=== PATIENT | male | born 1960 | race Hispanic/Latino ===

== ENCOUNTER 2022-11-11 18:38 | Emergency (ER) | payer SELFPAY ==
[~2022-11-11] VITALS: Ht 162.6 cm; Wt 72.6 kg
[2022-11-11] VITALS (25 sets, daily range): BP systolic 73–151; BP diastolic 43–91
[2022-11-11 19:32] LABS: BASO% 0.3 % (0-3); EOS% 8.8 % (0-8); HEMATOCRIT 40.4 % (39.0-50.0); HEMOGLOBIN 13.4 g/dl (14.0-18.0); IMMATURE GRANULOCYTES 0.6 % (0.0-5.0); LYMPH% 38.4 % (15-41); MEAN CELL VOLUME 95.5 fL CALC (80.0-100.0); MEAN CORPUSCULAR HGB 31.7 pG CALC (26.0-32.0); MEAN CORPUSCULAR HGB CONC 33.2 g/dL CAL (32.0-36.0); MONO% 12.3 % (2-13); NEUT# 2.5 thou/uL (1.82-7.42); NEUT% 39.6 % (42-76); RED BLOOD COUNT 4.23 mill/uL (4.70-6.10); RED CELL DISTRI WIDTH 12.9 % (11.5-15.5)
[2022-11-11 19:40] LABS: ALBUMIN 4.3 g/dL (3.2-5.0); ALKALINE PHOSPHATASE 109 u/l (38-126); ANION GAP 20 (6-22 (CALC)); BUN 4 mg/dL (8-23); BUN/CREATININE RATIO 6 (12-20 (CALC)); CARBON DIOXIDE 22 mmol/l (22-30); CHLORIDE 96 mmol/l (95-108); CREATININE 0.6 mg/dL (0.7-1.3); GFR FOR AFR.AMER. > 60 ML/MIN (>=60 (CALC)); GFR OTHER RACES > 60 ML/MIN (>=60 (CALC)); POTASSIUM 3.3 mmol/l (3.5-5.1); SGOT/AST 224 u/l (19-48); SODIUM 135 mmol/l (137-146); TOTAL PROTEIN 8.6 g/dL (6.3-8.2)
[2022-11-11 19:49] LABS: ETHYL ALCOHOL 409 mg/dl (0-30)
[2022-11-12] VITALS (29 sets, daily range): BP systolic 70–110; BP diastolic 44–66
== END 2022-11-12 10:30 | disposition home or self-care (01) | DRG 897 ==
LOC: ED 18:38
PROVIDERS: Emergency Medicine
DX: F10.129 Alcohol abuse with intoxication, unspecified (principal); Y90.8 Blood alcohol level of 240 mg/100 ml or more; S61.401A Unspecified open wound of right hand, initial encounter; L08.9 Local infection of the skin and subcutaneous tissue, unspecified; X58.XXXA Exposure to other specified factors, initial encounter; Z20.822 Contact with and (suspected) exposure to COVID-19

== ENCOUNTER 2023-06-03 11:36 | Inpatient (IN) | payer OTHER ==
[~2023-06-03] VITALS: Ht 162.6 cm; Wt 69.0 kg
[2023-06-03] VITALS (20 sets, daily range): BP systolic 107–207; BP diastolic 61–124
[2023-06-03 14:11] LABS: BASO% 0.7 % (0-3); EOS% 14.2 % (0-8); HEMATOCRIT 40.4 % (39.0-50.0); HEMOGLOBIN 13.4 g/dl (14.0-18.0); IMMATURE GRANULOCYTES 0.1 % (0.0-5.0); LYMPH% 21.8 % (15-41); MEAN CELL VOLUME 98.1 fL CALC (80.0-100.0); MEAN CORPUSCULAR HGB 32.5 pG CALC (26.0-32.0); MEAN CORPUSCULAR HGB CONC 33.2 g/dL CAL (32.0-36.0); MONO% 10.3 % (2-13); NEUT# 3.94 thou/uL (1.82-7.42); NEUT% 52.9 % (42-76); RED BLOOD COUNT 4.12 mill/uL (4.70-6.10); RED CELL DISTRI WIDTH 11.8 % (11.5-15.5)
[2023-06-03 14:49] LABS: ALBUMIN 4.1 g/dL (3.2-5.0); ALKALINE PHOSPHATASE 82 u/l (38-126); BILIRUBIN, TOTAL 0.7 mg/dL (0.2-1.3); BUN 10 mg/dL (8-23); BUN/CREATININE RATIO 17 (12-20 (CALC)); CHLORIDE 105 mmol/l (95-108); CREATININE 0.6 mg/dL (0.7-1.3); GFR FOR AFR.AMER. > 60 ML/MIN (>=60 (CALC)); GFR OTHER RACES > 60 ML/MIN (>=60 (CALC)); SGOT/AST 74 u/l (19-48); SODIUM 139 mmol/l (137-146); TOTAL PROTEIN 7.8 g/dL (6.3-8.2)
[2023-06-03 14:51] LABS: ANION GAP 10 (6-22 (CALC)); CARBON DIOXIDE 28 mmol/l (22-30)
[2023-06-03] MEDS ORDERED: ISONIAZID 300 MG TAB PO SCH (17:28)
[2023-06-03] MEDS ORDERED: rifAMPin 300 MG CAP PO ONE (17:30)
[2023-06-03] MEDS ORDERED: PYRAZINAMIDE 500 MG TAB PO SCH ×2 (17:30→18:30)
[2023-06-03] MEDS ORDERED: ETHAMBUTOL HCL 400 MG TAB PO SCH ×2 (17:30→18:35)
[2023-06-03] MEDS ORDERED: PYRIDOXINE HCL 25 MG PO SCH (17:56)
[2023-06-03] MEDS ORDERED: MAGNESIUM HYDROXIDE 30 ML UDC PO PRN (18:20)
[2023-06-03] MEDS ORDERED: rifAMPin 300 MG CAP PO SCH (18:29)
[2023-06-03] MEDS ORDERED: ENOXAPARIN SODIUM 40 MG/0.4 ML SYR SC SCH (21:00)
[2023-06-04 04:40] VITALS: BP 92/57
[2023-06-04 04:41] VITALS: BP 93/54
[2023-06-04 05:21] LABS: BASO% 0.6 % (0-3); EOS% 15.5 % (0-8); HEMATOCRIT 39.7 % (39.0-50.0); IMMATURE GRANULOCYTES 0.1 % (0.0-5.0); LYMPH% 23.7 % (15-41); MEAN CELL VOLUME 100.8 fL CALC (80.0-100.0); MEAN CORPUSCULAR HGB CONC 32.7 g/dL CAL (32.0-36.0); MONO% 15.3 % (2-13); NEUT# 3.47 thou/uL (1.82-7.42); NEUT% 44.8 % (42-76); RED BLOOD COUNT 3.94 mill/uL (4.70-6.10)
[2023-06-04 05:36] LABS: ALBUMIN 3.5 g/dL (3.2-5.0); ALKALINE PHOSPHATASE 56 u/l (38-126); ANION GAP 8 (6-22 (CALC)); BILIRUBIN, TOTAL 0.8 mg/dL (0.2-1.3); BUN 12 mg/dL (8-23); BUN/CREATININE RATIO 22 (12-20 (CALC)); CARBON DIOXIDE 30 mmol/l (22-30); CHLORIDE 106 mmol/l (95-108); CREATININE 0.6 mg/dL (0.7-1.3); GFR FOR AFR.AMER. > 60 ML/MIN (>=60 (CALC)); GFR OTHER RACES > 60 ML/MIN (>=60 (CALC)); MAGNESIUM 1.9 mg/dL (1.6-2.3); POTASSIUM 3.9 mmol/l (3.5-5.1); SGOT/AST 60 u/l (19-48); SODIUM 140 mmol/l (137-146)
[2023-06-04 06:53] VITALS: BP 102/67
[2023-06-04 16:09] VITALS: BP 93/51
[2023-06-04 19:53] VITALS: BP 89/54
[2023-06-04 22:13] VITALS: BP 94/55
[2023-06-05 07:03] LABS: EOS% 18.4 % (0-8); HEMATOCRIT 38.1 % (39.0-50.0); HEMOGLOBIN 12.6 g/dl (14.0-18.0); IMMATURE GRANULOCYTES 0.1 % (0.0-5.0); LYMPH% 25.9 % (15-41); MEAN CORPUSCULAR HGB 32.7 pG CALC (26.0-32.0); MEAN CORPUSCULAR HGB CONC 33.1 g/dL CAL (32.0-36.0); MONO% 14.3 % (2-13); NEUT# 2.9 thou/uL (1.82-7.42); NEUT% 40.3 % (42-76); RED BLOOD COUNT 3.85 mill/uL (4.70-6.10)
[2023-06-05 07:12] LABS: ALBUMIN 3.5 g/dL (3.2-5.0); ALKALINE PHOSPHATASE 80 u/l (38-126); ANION GAP 10 (6-22 (CALC)); BILIRUBIN, TOTAL 0.6 mg/dL (0.2-1.3); BUN 21 mg/dL (8-23); BUN/CREATININE RATIO 27 (12-20 (CALC)); CARBON DIOXIDE 27 mmol/l (22-30); CHLORIDE 106 mmol/l (95-108); CREATININE 0.8 mg/dL (0.7-1.3); GFR FOR AFR.AMER. > 60 ML/MIN (>=60 (CALC)); GFR OTHER RACES > 60 ML/MIN (>=60 (CALC)); MAGNESIUM 1.7 mg/dL (1.6-2.3); POTASSIUM 4.3 mmol/l (3.5-5.1); SGOT/AST 46 u/l (19-48); SODIUM 139 mmol/l (137-146); TOTAL PROTEIN 6.9 g/dL (6.3-8.2)
[2023-06-05 08:36] VITALS: BP 125/58
[2023-06-05 17:22] VITALS: BP 116/67
[2023-06-05 20:44] VITALS: BP 105/53
[2023-06-06 05:42] LABS: BASO% 0.8 % (0-3); EOS% 19.9 % (0-8); HEMATOCRIT 39.6 % (39.0-50.0); HEMOGLOBIN 13.1 g/dl (14.0-18.0); IMMATURE GRANULOCYTES 0.2 % (0.0-5.0); MEAN CELL VOLUME 98.3 fL CALC (80.0-100.0); MEAN CORPUSCULAR HGB 32.5 pG CALC (26.0-32.0); MEAN CORPUSCULAR HGB CONC 33.1 g/dL CAL (32.0-36.0); MONO% 10.4 % (2-13); NEUT# 2.37 thou/uL (1.82-7.42); NEUT% 36.7 % (42-76); RED BLOOD COUNT 4.03 mill/uL (4.70-6.10); RED CELL DISTRI WIDTH 11.7 % (11.5-15.5)
[2023-06-06 05:58] LABS: ANION GAP 10 (6-22 (CALC)); BUN 16 mg/dL (8-23); BUN/CREATININE RATIO 25 (12-20 (CALC)); CARBON DIOXIDE 28 mmol/l (22-30); CHLORIDE 108 mmol/l (95-108); CREATININE 0.6 mg/dL (0.7-1.3); GFR FOR AFR.AMER. > 60 ML/MIN (>=60 (CALC)); GFR OTHER RACES > 60 ML/MIN (>=60 (CALC)); POTASSIUM 4.5 mmol/l (3.5-5.1); SODIUM 141 mmol/l (137-146)
[2023-06-06 07:01] VITALS: BP 103/63
[2023-06-06 11:13] VITALS: BP 101/63
[2023-06-06 14:06] VITALS: BP 99/62
[2023-06-06 18:17] VITALS: BP 122/67
[2023-06-07 04:08] VITALS: BP 96/56
[2023-06-07 06:52] LABS: BASO% 0.7 % (0-3); EOS% 17.7 % (0-8); HEMATOCRIT 39.7 % (39.0-50.0); IMMATURE GRANULOCYTES 0.1 % (0.0-5.0); LYMPH% 27.8 % (15-41); MEAN CELL VOLUME 103.4 fL CALC (80.0-100.0); MEAN CORPUSCULAR HGB 33.9 pG CALC (26.0-32.0); MEAN CORPUSCULAR HGB CONC 32.7 g/dL CAL (32.0-36.0); MONO% 9.4 % (2-13); NEUT# 3.2 thou/uL (1.82-7.42); NEUT% 44.3 % (42-76); RED BLOOD COUNT 3.84 mill/uL (4.70-6.10); RED CELL DISTRI WIDTH 11.9 % (11.5-15.5)
[2023-06-07 07:00] VITALS: BP 100/56
[2023-06-07 07:20] LABS: ANION GAP 9 (6-22 (CALC)); BUN 17 mg/dL (8-23); BUN/CREATININE RATIO 21 (12-20 (CALC)); CARBON DIOXIDE 26 mmol/l (22-30); CHLORIDE 108 mmol/l (95-108); CREATININE 0.8 mg/dL (0.7-1.3); GFR FOR AFR.AMER. > 60 ML/MIN (>=60 (CALC)); GFR OTHER RACES > 60 ML/MIN (>=60 (CALC)); POTASSIUM 4.2 mmol/l (3.5-5.1); SODIUM 139 mmol/l (137-146)
[2023-06-07 07:50] VITALS: BP 100/56
[2023-06-07 13:58] VITALS: BP 115/72
[2023-06-07] MEDS ORDERED: PYRIDOXINE HCL 25 MG PO SCH (15:30)
[2023-06-07 15:58] VITALS: BP 115/72
[2023-06-07 20:03] VITALS: BP 103/67
[2023-06-08 04:11] VITALS: BP 96/48
[2023-06-08 05:21] LABS: BASO% 0.6 % (0-3); EOS% 17.1 % (0-8); HEMATOCRIT 38.6 % (39.0-50.0); HEMOGLOBIN 12.8 g/dl (14.0-18.0); IMMATURE GRANULOCYTES 0.3 % (0.0-5.0); LYMPH% 29.8 % (15-41); MEAN CELL VOLUME 98.5 fL CALC (80.0-100.0); MEAN CORPUSCULAR HGB 32.7 pG CALC (26.0-32.0); MEAN CORPUSCULAR HGB CONC 33.2 g/dL CAL (32.0-36.0); MONO% 9.7 % (2-13); NEUT# 3.01 thou/uL (1.82-7.42); NEUT% 42.5 % (42-76); RED BLOOD COUNT 3.92 mill/uL (4.70-6.10); RED CELL DISTRI WIDTH 11.7 % (11.5-15.5)
[2023-06-08 05:35] LABS: ANION GAP 10 (6-22 (CALC)); BUN 16 mg/dL (8-23); BUN/CREATININE RATIO 24 (12-20 (CALC)); CARBON DIOXIDE 28 mmol/l (22-30); CHLORIDE 105 mmol/l (95-108); CREATININE 0.7 mg/dL (0.7-1.3); GFR FOR AFR.AMER. > 60 ML/MIN (>=60 (CALC)); GFR OTHER RACES > 60 ML/MIN (>=60 (CALC)); POTASSIUM 4.3 mmol/l (3.5-5.1); SODIUM 139 mmol/l (137-146)
[2023-06-08 06:40] VITALS: BP 103/53
[2023-06-08 06:41] VITALS: BP 104/67
[2023-06-08] MEDS ORDERED: PYRIDOXINE HCL 25 MG PO SCH (09:00)
[2023-06-08 15:26] VITALS: BP 115/63
[2023-06-08 19:56] VITALS: BP 112/63
[2023-06-09 04:10] VITALS: BP 94/52
[2023-06-09 05:56] LABS: BASO% 0.8 % (0-3); EOS% 14.8 % (0-8); HEMATOCRIT 38.3 % (39.0-50.0); HEMOGLOBIN 12.8 g/dl (14.0-18.0); IMMATURE GRANULOCYTES 0.2 % (0.0-5.0); LYMPH% 31.2 % (15-41); MEAN CELL VOLUME 98.5 fL CALC (80.0-100.0); MEAN CORPUSCULAR HGB 32.9 pG CALC (26.0-32.0); MEAN CORPUSCULAR HGB CONC 33.4 g/dL CAL (32.0-36.0); MONO% 9.9 % (2-13); NEUT# 2.74 thou/uL (1.82-7.42); NEUT% 43.1 % (42-76); RED BLOOD COUNT 3.89 mill/uL (4.70-6.10); RED CELL DISTRI WIDTH 11.7 % (11.5-15.5)
[2023-06-09 06:17] LABS: ANION GAP 10 (6-22 (CALC)); BUN 16 mg/dL (8-23); BUN/CREATININE RATIO 23 (12-20 (CALC)); CARBON DIOXIDE 28 mmol/l (22-30); CHLORIDE 106 mmol/l (95-108); CREATININE 0.7 mg/dL (0.7-1.3); GFR FOR AFR.AMER. > 60 ML/MIN (>=60 (CALC)); GFR OTHER RACES > 60 ML/MIN (>=60 (CALC)); POTASSIUM 4.2 mmol/l (3.5-5.1); SODIUM 140 mmol/l (137-146)
[2023-06-09 07:00] VITALS: BP 108/63
[2023-06-09 15:05] VITALS: BP 117/68
[2023-06-09 20:01] VITALS: BP 127/77
[2023-06-10 03:42] VITALS: BP 98/65
[2023-06-10 05:11] LABS: BASO% 0.9 % (0-3); EOS% 13.3 % (0-8); HEMATOCRIT 37.9 % (39.0-50.0); HEMOGLOBIN 12.8 g/dl (14.0-18.0); IMMATURE GRANULOCYTES 0.1 % (0.0-5.0); LYMPH% 34.8 % (15-41); MEAN CORPUSCULAR HGB 33.4 pG CALC (26.0-32.0); MEAN CORPUSCULAR HGB CONC 33.8 g/dL CAL (32.0-36.0); MONO% 9.1 % (2-13); NEUT# 2.88 thou/uL (1.82-7.42); NEUT% 41.8 % (42-76); RED BLOOD COUNT 3.83 mill/uL (4.70-6.10); RED CELL DISTRI WIDTH 11.7 % (11.5-15.5)
[2023-06-10 05:13] LABS: ANION GAP 11 (6-22 (CALC)); BUN 16 mg/dL (8-23); BUN/CREATININE RATIO 24 (12-20 (CALC)); CARBON DIOXIDE 27 mmol/l (22-30); CHLORIDE 105 mmol/l (95-108); CREATININE 0.7 mg/dL (0.7-1.3); GFR FOR AFR.AMER. > 60 ML/MIN (>=60 (CALC)); GFR OTHER RACES > 60 ML/MIN (>=60 (CALC)); POTASSIUM 4.5 mmol/l (3.5-5.1); SODIUM 139 mmol/l (137-146)
[2023-06-10 06:34] VITALS: BP 106/65
[2023-06-10 14:48] VITALS: BP 104/53
[2023-06-10 15:37] VITALS: BP 104/53
[2023-06-10 19:59] VITALS: BP 115/67
[2023-06-11 04:16] VITALS: BP 95/40
[2023-06-11 05:43] LABS: BASO% 0.9 % (0-3); EOS% 12.8 % (0-8); HEMATOCRIT 38.7 % (39.0-50.0); IMMATURE GRANULOCYTES 0.1 % (0.0-5.0); MEAN CELL VOLUME 98.7 fL CALC (80.0-100.0); MEAN CORPUSCULAR HGB 33.2 pG CALC (26.0-32.0); MEAN CORPUSCULAR HGB CONC 33.6 g/dL CAL (32.0-36.0); MONO% 10.1 % (2-13); NEUT# 2.95 thou/uL (1.82-7.42); NEUT% 43.1 % (42-76); RED BLOOD COUNT 3.92 mill/uL (4.70-6.10); RED CELL DISTRI WIDTH 11.6 % (11.5-15.5)
[2023-06-11 05:53] LABS: ANION GAP 10 (6-22 (CALC)); BUN 15 mg/dL (8-23); BUN/CREATININE RATIO 22 (12-20 (CALC)); CARBON DIOXIDE 29 mmol/l (22-30); CHLORIDE 105 mmol/l (95-108); CREATININE 0.7 mg/dL (0.7-1.3); GFR FOR AFR.AMER. > 60 ML/MIN (>=60 (CALC)); GFR OTHER RACES > 60 ML/MIN (>=60 (CALC)); POTASSIUM 4.1 mmol/l (3.5-5.1); SODIUM 139 mmol/l (137-146)
[2023-06-11 07:07] VITALS: BP 91/60
[2023-06-11 15:08] VITALS: BP 103/56
[2023-06-11 20:18] VITALS: BP 103/64
[2023-06-12 04:35] VITALS: BP 92/58
[2023-06-12 06:56] LABS: BASO% 0.9 % (0-3); EOS% 14.1 % (0-8); HEMATOCRIT 37.1 % (39.0-50.0); HEMOGLOBIN 12.4 g/dl (14.0-18.0); IMMATURE GRANULOCYTES 0.2 % (0.0-5.0); LYMPH% 30.9 % (15-41); MEAN CELL VOLUME 98.4 fL CALC (80.0-100.0); MEAN CORPUSCULAR HGB 32.9 pG CALC (26.0-32.0); MEAN CORPUSCULAR HGB CONC 33.4 g/dL CAL (32.0-36.0); MONO% 10.2 % (2-13); NEUT# 2.79 thou/uL (1.82-7.42); NEUT% 43.7 % (42-76); RED BLOOD COUNT 3.77 mill/uL (4.70-6.10); RED CELL DISTRI WIDTH 11.7 % (11.5-15.5)
[2023-06-12 07:17] LABS: ANION GAP 9 (6-22 (CALC)); BUN 19 mg/dL (8-23); BUN/CREATININE RATIO 30 (12-20 (CALC)); CARBON DIOXIDE 26 mmol/l (22-30); CHLORIDE 106 mmol/l (95-108); CREATININE 0.6 mg/dL (0.7-1.3); GFR FOR AFR.AMER. > 60 ML/MIN (>=60 (CALC)); GFR OTHER RACES > 60 ML/MIN (>=60 (CALC)); POTASSIUM 3.9 mmol/l (3.5-5.1); SODIUM 138 mmol/l (137-146)
[2023-06-12 07:22] VITALS: BP 109/68
[2023-06-12 16:11] VITALS: BP 104/66
[2023-06-12 19:16] VITALS: BP 117/92
[2023-06-13 00:31] VITALS: BP 87/52; BP 89/52
[2023-06-13 05:16] VITALS: BP 98/63
[2023-06-13 07:11] LABS: BASO% 0.6 % (0-3); EOS% 14.9 % (0-8); HEMATOCRIT 39.6 % (39.0-50.0); HEMOGLOBIN 12.9 g/dl (14.0-18.0); IMMATURE GRANULOCYTES 0.3 % (0.0-5.0); LYMPH% 27.9 % (15-41); MEAN CELL VOLUME 98.8 fL CALC (80.0-100.0); MEAN CORPUSCULAR HGB 32.2 pG CALC (26.0-32.0); MEAN CORPUSCULAR HGB CONC 32.6 g/dL CAL (32.0-36.0); NEUT# 2.92 thou/uL (1.82-7.42); NEUT% 45.3 % (42-76); RED BLOOD COUNT 4.01 mill/uL (4.70-6.10); RED CELL DISTRI WIDTH 11.6 % (11.5-15.5)
[2023-06-13 07:36] LABS: ANION GAP 8 (6-22 (CALC)); BUN 15 mg/dL (8-23); BUN/CREATININE RATIO 23 (12-20 (CALC)); CARBON DIOXIDE 29 mmol/l (22-30); CHLORIDE 107 mmol/l (95-108); CREATININE 0.7 mg/dL (0.7-1.3); GFR FOR AFR.AMER. > 60 ML/MIN (>=60 (CALC)); GFR OTHER RACES > 60 ML/MIN (>=60 (CALC)); POTASSIUM 4.4 mmol/l (3.5-5.1); SODIUM 140 mmol/l (137-146)
[2023-06-13 09:02] VITALS: BP 105/62
[2023-06-13 16:53] VITALS: BP 94/60
[2023-06-13 19:39] VITALS: BP 110/62
[2023-06-14 04:49] VITALS: BP 116/60
[2023-06-14 05:43] LABS: BASO% 0.4 % (0-3); EOS% 14.7 % (0-8); HEMATOCRIT 36.2 % (39.0-50.0); HEMOGLOBIN 12.3 g/dl (14.0-18.0); IMMATURE GRANULOCYTES 0.1 % (0.0-5.0); LYMPH% 29.9 % (15-41); MEAN CELL VOLUME 98.4 fL CALC (80.0-100.0); MEAN CORPUSCULAR HGB 33.4 pG CALC (26.0-32.0); MONO% 11.4 % (2-13); NEUT# 2.97 thou/uL (1.82-7.42); NEUT% 43.5 % (42-76); RED BLOOD COUNT 3.68 mill/uL (4.70-6.10); RED CELL DISTRI WIDTH 11.7 % (11.5-15.5)
[2023-06-14 05:57] LABS: ANION GAP 8 (6-22 (CALC)); BUN 15 mg/dL (8-23); BUN/CREATININE RATIO 20 (12-20 (CALC)); CARBON DIOXIDE 27 mmol/l (22-30); CHLORIDE 107 mmol/l (95-108); CREATININE 0.7 mg/dL (0.7-1.3); GFR FOR AFR.AMER. > 60 ML/MIN (>=60 (CALC)); GFR OTHER RACES > 60 ML/MIN (>=60 (CALC)); POTASSIUM 4.1 mmol/l (3.5-5.1); SODIUM 138 mmol/l (137-146)
[2023-06-14 06:40] VITALS: BP 123/70
[2023-06-14 14:50] VITALS: BP 100/55
[2023-06-14 19:19] VITALS: BP 109/60
[2023-06-15 00:07] VITALS: BP 90/58; BP 91/49
[2023-06-15 05:13] VITALS: BP 106/70
[2023-06-15 06:20] LABS: BASO% 0.7 % (0-3); EOS% 16.2 % (0-8); HEMATOCRIT 37.3 % (39.0-50.0); HEMOGLOBIN 12.7 g/dl (14.0-18.0); IMMATURE GRANULOCYTES 0.1 % (0.0-5.0); LYMPH% 31.5 % (15-41); MEAN CELL VOLUME 97.6 fL CALC (80.0-100.0); MEAN CORPUSCULAR HGB 33.2 pG CALC (26.0-32.0); MONO% 11.3 % (2-13); NEUT# 2.69 thou/uL (1.82-7.42); NEUT% 40.2 % (42-76); RED BLOOD COUNT 3.82 mill/uL (4.70-6.10); RED CELL DISTRI WIDTH 11.6 % (11.5-15.5)
[2023-06-15 06:29] LABS: ANION GAP 10 (6-22 (CALC)); BUN 13 mg/dL (8-23); BUN/CREATININE RATIO 19 (12-20 (CALC)); CARBON DIOXIDE 27 mmol/l (22-30); CHLORIDE 107 mmol/l (95-108); CREATININE 0.7 mg/dL (0.7-1.3); GFR FOR AFR.AMER. > 60 ML/MIN (>=60 (CALC)); GFR OTHER RACES > 60 ML/MIN (>=60 (CALC)); POTASSIUM 4.2 mmol/l (3.5-5.1); SODIUM 139 mmol/l (137-146)
[2023-06-15 08:06] VITALS: BP 101/64
[2023-06-15 15:30] VITALS: BP 105/72
[2023-06-15 15:35] VITALS: BP 109/69
[2023-06-15 19:07] VITALS: BP 103/65
[2023-06-16 05:04] VITALS: BP 105/66
[2023-06-16 06:25] LABS: BASO% 0.6 % (0-3); EOS% 14.8 % (0-8); HEMATOCRIT 37.3 % (39.0-50.0); HEMOGLOBIN 12.6 g/dl (14.0-18.0); IMMATURE GRANULOCYTES 0.1 % (0.0-5.0); MEAN CELL VOLUME 97.1 fL CALC (80.0-100.0); MEAN CORPUSCULAR HGB 32.8 pG CALC (26.0-32.0); MEAN CORPUSCULAR HGB CONC 33.8 g/dL CAL (32.0-36.0); MONO% 10.9 % (2-13); NEUT# 2.81 thou/uL (1.82-7.42); NEUT% 41.6 % (42-76); RED BLOOD COUNT 3.84 mill/uL (4.70-6.10); RED CELL DISTRI WIDTH 11.7 % (11.5-15.5)
[2023-06-16 06:48] LABS: ANION GAP 11 (6-22 (CALC)); BUN 16 mg/dL (8-23); BUN/CREATININE RATIO 20 (12-20 (CALC)); CARBON DIOXIDE 26 mmol/l (22-30); CHLORIDE 107 mmol/l (95-108); CREATININE 0.8 mg/dL (0.7-1.3); GFR FOR AFR.AMER. > 60 ML/MIN (>=60 (CALC)); GFR OTHER RACES > 60 ML/MIN (>=60 (CALC)); POTASSIUM 4.2 mmol/l (3.5-5.1); SODIUM 139 mmol/l (137-146)
[2023-06-16 07:15] VITALS: BP 129/72
[2023-06-16 16:15] VITALS: BP 109/72
[2023-06-16 19:23] VITALS: BP 112/75
[2023-06-17 04:06] VITALS: BP 101/65
[2023-06-17 07:15] VITALS: BP 105/70
[2023-06-17 07:32] LABS: BASO% 0.5 % (0-3); EOS% 14.4 % (0-8); HEMATOCRIT 37.7 % (39.0-50.0); IMMATURE GRANULOCYTES 0.2 % (0.0-5.0); LYMPH% 34.8 % (15-41); MEAN CELL VOLUME 96.7 fL CALC (80.0-100.0); MEAN CORPUSCULAR HGB 33.3 pG CALC (26.0-32.0); MEAN CORPUSCULAR HGB CONC 34.5 g/dL CAL (32.0-36.0); MONO% 11.7 % (2-13); NEUT# 2.43 thou/uL (1.82-7.42); NEUT% 38.4 % (42-76); RED BLOOD COUNT 3.9 mill/uL (4.70-6.10); RED CELL DISTRI WIDTH 11.6 % (11.5-15.5)
[2023-06-17 07:54] LABS: ANION GAP 10 (6-22 (CALC)); BUN 14 mg/dL (8-23); BUN/CREATININE RATIO 20 (12-20 (CALC)); CARBON DIOXIDE 26 mmol/l (22-30); CHLORIDE 106 mmol/l (95-108); CREATININE 0.7 mg/dL (0.7-1.3); GFR FOR AFR.AMER. > 60 ML/MIN (>=60 (CALC)); GFR OTHER RACES > 60 ML/MIN (>=60 (CALC)); POTASSIUM 4.3 mmol/l (3.5-5.1); SODIUM 138 mmol/l (137-146)
[2023-06-17 14:54] VITALS: BP 84/48
[2023-06-17 19:39] VITALS: BP 93/53
[2023-06-18 04:01] VITALS: BP 112/67
[2023-06-18 04:52] LABS: BASO% 0.5 % (0-3); EOS% 13.2 % (0-8); HEMOGLOBIN 12.6 g/dl (14.0-18.0); IMMATURE GRANULOCYTES 0.2 % (0.0-5.0); LYMPH% 30.1 % (15-41); MEAN CELL VOLUME 96.1 fL CALC (80.0-100.0); MEAN CORPUSCULAR HGB 32.7 pG CALC (26.0-32.0); MEAN CORPUSCULAR HGB CONC 34.1 g/dL CAL (32.0-36.0); MONO% 11.7 % (2-13); NEUT# 2.85 thou/uL (1.82-7.42); NEUT% 44.3 % (42-76); RED BLOOD COUNT 3.85 mill/uL (4.70-6.10); RED CELL DISTRI WIDTH 11.7 % (11.5-15.5)
[2023-06-18 05:34] LABS: ANION GAP 11 (6-22 (CALC)); BUN 15 mg/dL (8-23); BUN/CREATININE RATIO 23 (12-20 (CALC)); CARBON DIOXIDE 25 mmol/l (22-30); CHLORIDE 106 mmol/l (95-108); CREATININE 0.7 mg/dL (0.7-1.3); GFR FOR AFR.AMER. > 60 ML/MIN (>=60 (CALC)); GFR OTHER RACES > 60 ML/MIN (>=60 (CALC)); POTASSIUM 4.2 mmol/l (3.5-5.1); SODIUM 138 mmol/l (137-146)
[2023-06-18 07:27] VITALS: BP 120/73
[2023-06-18 16:12] VITALS: BP 113/71
[2023-06-18 19:57] VITALS: BP 117/71
[2023-06-19 04:10] VITALS: BP 75/42
[2023-06-19 05:10] VITALS: BP 95/60
[2023-06-19 07:17] VITALS: BP 87/44
[2023-06-19 15:52] VITALS: BP 105/67
[2023-06-19 18:36] VITALS: BP 103/65
[2023-06-19 19:00] VITALS: BP 103/65
[2023-06-20 04:00] VITALS: BP 114/66
[2023-06-20 04:03] VITALS: BP 114/66
[2023-06-20 05:54] LABS: BASO% 0.3 % (0-3); EOS% 10.8 % (0-8); HEMATOCRIT 35.6 % (39.0-50.0); HEMOGLOBIN 12.2 g/dl (14.0-18.0); IMMATURE GRANULOCYTES 0.2 % (0.0-5.0); LYMPH% 38.2 % (15-41); MEAN CORPUSCULAR HGB 33.2 pG CALC (26.0-32.0); MEAN CORPUSCULAR HGB CONC 34.3 g/dL CAL (32.0-36.0); MONO% 13.2 % (2-13); NEUT# 2.33 thou/uL (1.82-7.42); NEUT% 37.3 % (42-76); RED BLOOD COUNT 3.67 mill/uL (4.70-6.10); RED CELL DISTRI WIDTH 11.5 % (11.5-15.5)
[2023-06-20 06:11] LABS: ANION GAP 10 (6-22 (CALC)); BUN 17 mg/dL (8-23); BUN/CREATININE RATIO 22 (12-20 (CALC)); CARBON DIOXIDE 28 mmol/l (22-30); CHLORIDE 105 mmol/l (95-108); CREATININE 0.8 mg/dL (0.7-1.3); GFR FOR AFR.AMER. > 60 ML/MIN (>=60 (CALC)); GFR OTHER RACES > 60 ML/MIN (>=60 (CALC)); POTASSIUM 4.1 mmol/l (3.5-5.1); SODIUM 139 mmol/l (137-146)
[2023-06-20 07:36] VITALS: BP 114/66
[2023-06-20 15:35] VITALS: BP 117/74
[2023-06-20 15:57] VITALS: BP 117/74
[2023-06-20 18:14] VITALS: BP 110/69
[2023-06-21 04:35] VITALS: BP 97/59
[2023-06-21 06:29] VITALS: BP 109/65
[2023-06-21 07:15] LABS: BASO% 0.8 % (0-3); EOS% 12.3 % (0-8); HEMATOCRIT 36.4 % (39.0-50.0); HEMOGLOBIN 12.4 g/dl (14.0-18.0); IMMATURE GRANULOCYTES 0.2 % (0.0-5.0); LYMPH% 33.5 % (15-41); MEAN CELL VOLUME 97.1 fL CALC (80.0-100.0); MEAN CORPUSCULAR HGB 33.1 pG CALC (26.0-32.0); MEAN CORPUSCULAR HGB CONC 34.1 g/dL CAL (32.0-36.0); MONO% 14.5 % (2-13); NEUT# 2.55 thou/uL (1.82-7.42); NEUT% 38.7 % (42-76); RED BLOOD COUNT 3.75 mill/uL (4.70-6.10); RED CELL DISTRI WIDTH 11.6 % (11.5-15.5)
[2023-06-21 07:34] LABS: ANION GAP 9 (6-22 (CALC)); BUN 16 mg/dL (8-23); BUN/CREATININE RATIO 20 (12-20 (CALC)); CARBON DIOXIDE 28 mmol/l (22-30); CHLORIDE 105 mmol/l (95-108); CREATININE 0.8 mg/dL (0.7-1.3); GFR FOR AFR.AMER. > 60 ML/MIN (>=60 (CALC)); GFR OTHER RACES > 60 ML/MIN (>=60 (CALC)); POTASSIUM 4.3 mmol/l (3.5-5.1); SODIUM 138 mmol/l (137-146)
[2023-06-21] MEDS ORDERED: RIFAMPIN300 MG PO (13:26)
== END 2023-06-21 15:00 | DRG 204 ==
LOC: ED 11:36 → ED-I 12:50 → ED 12:50 → MS2 17:32
PROVIDERS: Emergency Medicine; Student in an Organized Health Care Education/Training Program; ADMIT Student in an Organized Health Care Education/Training Program; ATTEND Student in an Organized Health Care Education/Training Program
DX: R91.8 Other nonspecific abnormal finding of lung field (principal); Z22.7 Latent tuberculosis; F10.10 Alcohol abuse, uncomplicated; Z87.891 Personal history of nicotine dependence
CPT/HCPCS: J1650; Q9967